=== PATIENT | female | born 1985 | race African-American/Black ===

== ENCOUNTER → 2018-07-21 | Outpatient (CLI) | payer BC ==
[~2018-07-21] MED LIST: BIOTIN10000 MC1 PO; LEVOTHYROXINE 0.1 MG PO; PROMETHAZINE12.5 M4 RE; SPIRONOLACTONE50 MG PO; SYNTHROID150 MCG PO; VITAMIN D3400 UNIT PO
== END ==
LOC: M.ULTRA 09:15
DX: K76.0 Fatty (change of) liver, not elsewhere classified (principal); R19.7 Diarrhea, unspecified; R51 Headache; E03.9 Hypothyroidism, unspecified; F32.9 Major depressive disorder, single episode, unspecified; E11.9 Type 2 diabetes mellitus without complications; Z91.81 History of falling